=== PATIENT | male | born 1975 | race Caucasian/White ===

== ENCOUNTER → 2016-08-06 | Outpatient (CLI) | payer OTHER ==
[~2016-08-06] MED LIST: CILOXAN 5 ML5 ML OS; DUO-KAPS1 CAP PO; GLUCOSAMINE & C1 CA1 PO
== END ==
LOC: BHSO 09:23
DX: F41.1 Generalized anxiety disorder (principal)

== ENCOUNTER → 2016-10-04 | Outpatient (CLI) | payer OTHER | LOC: BHSO 08:58 | DX: F41.1 Generalized anxiety disorder (principal) ==

== ENCOUNTER → 2017-01-09 | Outpatient (CLI) | payer OTHER | LOC: BHSO 09:06 | DX: F41.1 Generalized anxiety disorder (principal) ==

== ENCOUNTER → 2017-05-23 | Outpatient (CLI) | payer SELFPAY | LOC: BHSO 09:06 | DX: F41.1 Generalized anxiety disorder (principal) | CPT/HCPCS: G0463 ==

== ENCOUNTER → 2017-06-30 | Outpatient (CLI) | payer SELFPAY | LOC: BHSO 09:04 | DX: F33.1 Major depressive disorder, recurrent, moderate (principal) ==